=== PATIENT | male | born 1955 | race Caucasian/White ===

== ENCOUNTER → 2018-01-02 | Emergency (ER) | END | disposition home or self-care (01) ==

== ENCOUNTER 2018-01-09 11:30 | Emergency (ER) | END 2018-01-09 12:02 | disposition home or self-care (01) ==

== ENCOUNTER 2019-02-12 09:56 | Emergency (ER) | payer OTHER ==
[~2019-02-12] VITALS: Ht 167.6 cm; Wt 80.0 kg
[~2019-02-12 09:56] MED LIST: CEPH-443 PO; FAMO-96 PO; HYDR-4011 PO; IBUP-1542 PO; ONDA4TAB8 PO; SITA100T11 PO
[2019-02-12 09:59] VITALS: Ht 167.6 cm; Wt 80.0 kg
[2019-02-12] MEDS ORDERED: LIDOCAINE/MYLANTA 40 ML BTL PO STA (10:09)
[2019-02-12] MEDS ORDERED: SOD CHLORIDE 0.9% 500 ML IV STA (10:09)
[2019-02-12] MEDS ORDERED: BELLADONNA/PHENOBARBITAL TAB PO STA (10:09)
[2019-02-12] MEDS ORDERED: ONDANSETRON 4 MG INJ IV STA (10:09)
[2019-02-12] MEDS ORDERED: FAMOTIDINE 20 MG INJ IV STA (10:09)
[2019-02-12] MEDS ORDERED: morphine 4 MG/ML VIAL IV STA (11:34)
[2019-02-12 13:17] VITALS: BP 154/76; PULSE 65; RESP 16
[2019-02-12] MEDS ORDERED: HYDROCODONE/APAP (10/325) TAB PO ONE (13:30)
== END 2019-02-12 13:28 | disposition home or self-care (01) ==
LOC: E/R 09:56
DX: K80.70 Calculus of gallbladder and bile duct without cholecystitis without obstruction (principal); E11.9 Type 2 diabetes mellitus without complications; E03.9 Hypothyroidism, unspecified
CPT/HCPCS: 36415; 71045; 76705; 80053; 81003; 83690; 85025; 96361; 96374; 96375; J2270; J2405; J7040; Z7502; Z7610